=== PATIENT | male | born 1950 | race Two or more races ===

== ENCOUNTER → 2020-03-17 08:00 | Outpatient (CLI) | payer OTHER ==
[~2020-03-17] VITALS: Ht 167.6 cm; Wt 49.9 kg
[~2020-03-17 08:00] MED LIST: B12 ACTIVE1000 MCG PO; FOLIC ACID0.8 M1 PO; HYDROCHLOROTH12.5 MG PO; INTEGRA PLUS C1 EACH PO
== END | disposition home or self-care (01) ==
LOC: LAB 08:00 → ADM 08:00 → EDSTATUS 03-24 11:45 → SURH 03-24 11:45
PROVIDERS: ATTEND Colon & Rectal Surgery
DX: Z20.828 Contact with and (suspected) exposure to other viral communicable diseases (principal); C18.5 Malignant neoplasm of splenic flexure; Z85.038 Personal history of other malignant neoplasm of large intestine; Z03.818 Encounter for observation for suspected exposure to other biological agents ruled out